=== PATIENT | female | born 1955 | race Caucasian/White ===

== ENCOUNTER 2021-03-09 07:18 | Outpatient (CLI) | payer MEDICAID ==
[2021-03-09 16:22] LABS: BASOPHILS # (AUTO) 0.1 10^3/uL (0.0-0.1); BASOPHILS % (AUTO) 1.1 %; EOSINOPHILS # (AUTO) 0.4 10^3/uL (0.0-0.7); HCT - HEMATOCRIT 41.6 % (37.0-47.0); HGB - HEMOGLOBIN 12.7 g/dL (12.0-16.0); LYMPHOCYTES # (AUTO) 2.4 10^3/uL (1.5-3.5); LYMPHOCYTES % (AUTO) 32.7 %; MEAN CORPUSCULAR HEMOGLOBIN 28.2 pg (27.0-31.0); MEAN CORPUSCULAR HGB CONC 30.5 g/dL (32.0-36.0); MEAN CORPUSCULAR VOLUME 92.4 fL (81.0-99.0); MEAN PLATELET VOLUME 9.5 fL (7.9-10.8); MONOCYTES # (AUTO) 0.5 10^3/uL (0.0-1.0); MONOCYTES % (AUTO) 6.9 %; PLT - PLATELET COUNT 432 10^3/uL (130-450); RED CELL DISTRIBUTION WIDTH 15.2 % (12.0-15.0); WHITE BLOOD COUNT 7.4 x10^3/uL (4.8-10.8)
[2021-03-09 16:32] LABS: CREATININE,URINE 74.4 mg/dL; MICROALBUM/CREATININE RATIO,UR 5.4 ug/mg (<30.0); MICROALBUMIN,URINE 0.4 mg/dL (0-300.0)
[2021-03-09 16:37] LABS: ALBUMIN 4.1 g/dL (3.2-5.5); ALBUMIN/GLOBULIN RATIO 1.2 (1.0-2.2); ALKALINE PHOSPHATASE 94 IU/L (42-121); ALT ALANINE AMINOTRANSFERASE 21 IU/L (10-60); AST ASPARTATE AMINOTRANSFERASE 19 IU/L (10-42); BILIRUBIN,TOTAL 0.5 mg/dL (0.2-1.0); BUN - BLOOD UREA NITROGEN 19 mg/dL (6-20); CALCIUM 9.3 mg/dL (8.5-10.3); CARBON DIOXIDE - CO2 28 mmol/L (21-32); CHLORIDE 101 mmol/L (101-111); CHOL/HDL RATIO 3.8 (<4.4); CHOLESTEROL 260 mg/dL; CREATININE 0.9 mg/dL (0.4-1.0); GFR - MDRD 63 (>89); GLUCOSE 115 mg/dL (70-100); HDL CHOLESTEROL 69 mg/dL; LDL CHOLESTEROL,CALCULATED 149 mg/dL; LDL/HDL RATIO 2.2 (<4.4); POTASSIUM 4.4 mmol/L (3.5-5.0); SODIUM 137 mmol/L (135-145); TOTAL PROTEIN 7.6 g/dL (6.7-8.2); TRIGLYCERIDES 211 mg/dL; VLDL CHOLESTEROL 42 mg/dL
[2021-03-09 16:50] LABS: THYROID STIMULATING HORMONE 9.17 uIU/mL (0.34-5.60)
[2021-03-09 17:26] LABS: FREE T4 (FREE THYROXINE) 0.67 ng/dL (0.58-1.64)
[2021-03-09 19:51] LABS: ESTIMATED AVERAGE GLUCOSE 140 mg/dL (70-100); HEMOGLOBIN A1c% 6.5 % (4.27-6.07)
== END 2021-03-09 07:19 | disposition home or self-care (01) ==
LOC: LAB.S 07:18
PROVIDERS: ATTEND Physician Assistant
DX: I10 Essential (primary) hypertension (principal); F33.9 Major depressive disorder, recurrent, unspecified; K21.9 Gastro-esophageal reflux disease without esophagitis; K57.90 Diverticulosis of intestine, part unspecified, without perforation or abscess without bleeding; E03.9 Hypothyroidism, unspecified; E11.9 Type 2 diabetes mellitus without complications
CPT/HCPCS: 36415; 80053; 80061; 82043; 82570; 83036; 83721; 84439; 84443; 85025

== ENCOUNTER 2021-04-24 12:55 | Outpatient (CLI) | payer MEDICAID | END 2021-04-24 12:56 | disposition home or self-care (01) | LOC: LAB.S 12:55 | PROVIDERS: ATTEND Physician Assistant | DX: E03.9 Hypothyroidism, unspecified (principal) | CPT/HCPCS: 36415; 84443 ==

== ENCOUNTER 2021-07-03 10:17 | Outpatient (CLI) | payer MEDICAID ==
[2021-07-03 16:23] LABS: THYROID STIMULATING HORMONE < 0.08 uIU/mL (0.34-5.60)
[2021-07-03 16:55] LABS: FREE T4 (FREE THYROXINE) 1.01 ng/dL (0.58-1.64)
== END 2021-07-03 10:18 | disposition home or self-care (01) ==
LOC: LAB.S 10:17
PROVIDERS: ATTEND Internal Medicine
DX: E03.9 Hypothyroidism, unspecified (principal)
CPT/HCPCS: 36415; 84439; 84443

== ENCOUNTER 2021-08-12 09:38 | Outpatient (CLI) | payer MEDICAID ==
[2021-08-12 15:27] LABS: THYROID STIMULATING HORMONE 0.12 uIU/mL (0.34-5.60)
[2021-08-12 16:11] LABS: FREE T4 (FREE THYROXINE) 0.79 ng/dL (0.58-1.64)
[2021-08-12 20:23] LABS: ESTIMATED AVERAGE GLUCOSE 140 mg/dL (70-100); HEMOGLOBIN A1c% 6.5 % (4.27-6.07)
== END 2021-08-12 09:39 | disposition home or self-care (01) ==
LOC: LAB.S 09:38
PROVIDERS: ATTEND Internal Medicine
DX: E03.9 Hypothyroidism, unspecified (principal)
CPT/HCPCS: 36415; 81599; 83036; 84436; 84439; 84443

== ENCOUNTER 2021-09-14 10:00 | Outpatient (CLI) | payer MEDICAID ==
--- NOTE | 2021-09-28 09:53 | Mammography Report ---
BILATERAL DIGITAL SCREENING MAMMOGRAM 3D/2D: 09/14/2021 CLINICAL: Routine screening. Comparison is made to exams dated: 01/06/2012 mammogram, 02/12/2009 mammogram, 09/19/2007 mammogram, an d 09/11/2007 mammogram - [facility]. The tissue of both breasts is predominantly fa tty. No significant masses, calcifications, or other findings are seen in either breast. There has been no significant interval change. IMPRESSION: NEGATIVE There is no mammographic evidence of malignancy. A 1 year screening mammogram is recommended. This exam was interpreted at Station ID: [id number]. NOTE: For mammograms, a report in lay terms will be sent to the patient. Approximately 15% of breast malignancies will not be visualized mammographically. In the management of a palpable breast mass, a negative mammogram must not discourage biopsy of a clinically suspicious lesion. Electronically Signed By: Jeovanny Palomino acr/penrad:09/25/2021 11:44:31 ACR BI-RADS Category 1: Negative 3341F PARENCHYMAL PATTERN: (F) - The breast(s) demonstrate(s) diffuse fatty replacement. BI-RADS CATEGORY: (1) - 1 RECOMMENDATION: (ANNUAL) - Recommend routine annual screening mammography. [id number] 1 year screening LATERALITY: (B)
== END 2021-09-14 10:01 | disposition home or self-care (01) ==
LOC: DI.S 10:00
DX: Z12.31 Encounter for screening mammogram for malignant neoplasm of breast (principal)

== ENCOUNTER 2021-11-13 10:12 | Outpatient (CLI) | payer MEDICAID ==
[2021-11-13 17:18] LABS: THYROID STIMULATING HORMONE 1.22 uIU/mL (0.34-5.60)
[2021-11-13 18:50] LABS: ESTIMATED AVERAGE GLUCOSE 134 mg/dL (70-100); HEMOGLOBIN A1c% 6.3 % (4.27-6.07)
== END 2021-11-13 10:13 | disposition home or self-care (01) ==
LOC: LAB.S 10:12
PROVIDERS: ATTEND Internal Medicine
DX: E03.9 Hypothyroidism, unspecified (principal); E11.9 Type 2 diabetes mellitus without complications
CPT/HCPCS: 36415; 83036; 84443

== ENCOUNTER 2021-11-20 12:56 | Outpatient (CLI) | payer MEDICAID ==
--- NOTE | 2021-11-20 17:11 | Ultrasound Report ---
PROCEDURE: Head or Neck Soft Tissue INDICATIONS: ENLARGED THYROID TECHNIQUE: Real time scanning was performed of the neck region of interest, with image documentation . COMPARISON: None. FINDINGS: Right: Thyroid lobe measures 3.1 x 1.0 x 1.0 cm, and is continues in echotexture. Left: Thyroid lobe measures 3.2 x 0.9 x 1.0 cm, and is homogenous in echotexture. Isthmus: Atrophic, therefore, not well seen. Largest cervical lymph nodes are present bilaterally. There is a 2.2 x 4.4 x 1.1 cm right cervical ly mph node. A 2.0 x 0.5 x 1.1 cm left cervical lymph node is identified. IMPRESSION: 1. Atrophic thyroid gland with heterogeneous echotexture. Please correlate with thyroid function test s. 2. Mild cervical lymphadenopathy. The findings nonspecific. Recommend clinical and imaging follow-up. Reviewed by: Maxime Hubbard MD on 11/20/2021 5:10 PM PDT Approved by: Maxime Hubbard MD on 11/20/2021 5:10 PM PDT Station ID: [id number]
== END 2021-11-20 12:57 | disposition home or self-care (01) ==
LOC: DI 12:56
PROVIDERS: ATTEND Internal Medicine
DX: E03.4 Atrophy of thyroid (acquired) (principal); R59.0 Localized enlarged lymph nodes

== ENCOUNTER 2021-11-27 08:00 | Outpatient (CLI) | payer MEDICAID ==
--- NOTE | 2021-11-27 10:09 | XRAY Report ---
PROCEDURE: Lumbar Spine 2 View INDICATIONS: LOW BACK PAIN TECHNIQUE: 2 views of the lumbar spine were acquired. COMPARISON: None. FINDINGS: Bones: 5 [id number] vertebrae are present. There is grade 1 anterolisthesis of L4 on L5. Bilat eral facet arthrosis at L4-5 and L5-S1 levels are seen. Degenerative endplate changes also seen at L3 -4 and L4-5 levels.. No vertebral body compression fractures. No suspicious bony lesions. Soft tissues: Overlying bowel gas pattern is normal. No suspicious soft tissue calcifications. IMPRESSION: Grade 1 anterolisthesis of L4 on L5. No acute compression fracture. Mild degenerative di sc disease in lower lumbar spine as above. Reviewed by: Puma Melvin MD on 11/27/2021 10:07 AM PDT Approved by: Puma Melvin MD on 11/27/2021 10:07 AM PDT Station ID: [id number]
== END 2021-11-27 23:59 | disposition home or self-care (01) ==
LOC: DI.S 08:00
PROVIDERS: ATTEND Physician Assistant Medical
DX: M43.16 Spondylolisthesis, lumbar region (principal); M47.816 Spondylosis without myelopathy or radiculopathy, lumbar region; M51.36 Other intervertebral disc degeneration, lumbar region

== ENCOUNTER 2022-01-22 06:27 | Day surgery (SDC) | payer MEDICAID ==
[2022-01-22] MEDS ORDERED: LACTATED RINGERS 1,000 ML IV ONE ×2 (06:45→08:24)
--- NOTE | 2022-01-22 07:15 | ANESTHESIA ---
Pre-Anesthesia VS, & Labs - Diagnosis history of polyps - Procedure colonoscopy Vital Signs: Temp Pulse Resp BP Pulse Ox 36.0 C L 114 H 16 165/91 H 98 01/22/22 06:45 01/22/22 06:45 01/22/22 06:45 01/22/22 06:45 01/22/22 06:45 Height: 5 ft 4 in Weight (kg): 81.7 kg Body Mass Index: 30.9 BMI Classification: Obese - NPO >8 hours - Is Patient ?: No - Lab Results Current Lab Results: Laboratory Tests 01/22/22 06:58: POC Whole Bld Glucose 105 H Home Medications and Allergies Home Medications: Ambulatory Orders Aspirin [[place] Aspirin EC] 1 tab PO DAILY 01/21/22 Levothyroxine [Synthroid] 1 tab PO DAILY 01/21/22 Losartan [Cozaar] 1 tab PO DAILY 01/21/22 Theanine [l-Theanine] 1 tab PO DAILY 01/21/22 buPROPion [Wellbutrin Sr] 2 tab PO BID 01/21/22 metFORMIN [Glucophage] 1 tab PO DAILY 01/21/22 Aspirin [[place] Aspirin EC] 1 tab PO DAILY 01/21/22 Levothyroxine [Synthroid] 1 tab PO DAILY 01/21/22 Losartan [Cozaar] 1 tab PO DAILY 01/21/22 Theanine [l-Theanine] 1 tab PO DAILY 01/21/22 buPROPion [Wellbutrin Sr] 2 tab PO BID 01/21/22 metFORMIN [Glucophage] 1 tab PO DAILY 01/21/22 Allergies/Adverse Reactions: Allergies Allergy/AdvReac Type Severity Reaction Status Date / Time gentamicin Allergy Itching Verified 01/21/22 13:06 "micins" Allergy Rash Uncoded 01/21/22 13:23 Anes History & Medical History - Anesthetic History Anesthesia Complications: reports: No previous complications - Medical History Cardiovascular: reports: Hypertension Pulmonary: reports: None Gastrointestinal: reports: Colon polyps Urinary: reports: None Musculoskeletal: reports: Osteoarthritis, Chronic back pain Endocrine/Autoimmune: reports: Type 2 diabetes, HyPOthyroidism Skin: reports: None Smoking Status: Never smoker History of Cancer?: No - Surgical History General: reports: Colonoscopy Gynecologic: reports: Dilation and currettage Orthopedic: reports: Other Exam General: Alert, Oriented x3 Dental: WNL Mouth Opening: Greater than 4 Fingerbreadths Neck Mobility: Normal Mallampati classification: II Respiratory: Lungs clear Cardiovascular: Regular rate, Normal S1, Normal S2 Plan Anesthesia Type: Total IV Consent for Procedure(s) Verified and Reviewed: Yes Code Status: Attempt Resuscitation ASA classification: 2-Mild systemic disease Is this case an emergency?: No
--- NOTE | 2022-01-22 07:39 | HISTORY & PHYSICAL EXAMINATION ---
Chief Complaint - Chief Complaint Chief Complaint: history of colon polyps History of Present Illness - History Obtained From Records Reviewed: yes History obtained from: pt Exam Limitations: none - History of Present Illness HPI Comment/Other: history of colon polyps and possible abnormal cecum by imaging. no problems. here for colon surveillance. she has had previous work up and consult for cecum. 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 and currettage Meds/Allgy - Home Medications Home Medications: Ambulatory Orders Medication Instructions Recorded Confirmed Aspirin [[place] Aspirin EC] 1 tab PO DAILY 01/21/22 01/21/22 Levothyroxine [Synthroid] 1 tab PO DAILY 01/21/22 01/21/22 Losartan [Cozaar] 1 tab PO DAILY 01/21/22 01/21/22 Theanine [l-Theanine] 1 tab PO DAILY 01/21/22 01/21/22 buPROPion [Wellbutrin Sr] 2 tab PO BID 01/21/22 01/21/22 metFORMIN [Glucophage] 1 tab PO DAILY 01/21/22 01/21/22 - Allergies Allergies/Adverse Reactions: Allergies Allergy/AdvReac Type Severity Reaction Status Date / Time gentamicin Allergy Itching Verified 01/21/22 13:06 "micins" Allergy Rash Uncoded 01/21/22 13:23 Review of Systems - Other Findings Other Findings: 10 pt ros as above otherwise unremarkable Exam - Vital Signs Reviewed Vital Signs: Yes Vital Signs: Vital Signs x48h Temp Pulse Resp BP Pulse Ox 01/22/22 06:45 36.0 C L 114 H 16 165/91 H 98 - Physical Exam General Appearance: positive: No acute distress, Alert Eyes Bilateral: positive: PERRL, EOMI, No scleral icterus ENT: positive: No signs of dehydration Neck: positive: No JVD, Trachea midline Respiratory: positive: No respiratory distress, Breath sounds nml Cardiovascular: positive: Regular rate & rhythm Abdomen: positive: Non-tender, No distention Neurologic/Psychiatric: positive: Oriented x3 Conclusion/Plan - Problem List (1) History of adenomatous polyp of colon Conclusion/Plan: plaqn colonoscopy. parq held and consent obtained
[2022-01-22] MEDS ORDERED: PROPOFOL 500 MG/50 ML 500 MG/50 ML VIAL ONE (08:05)
[2022-01-22 08:35] VITALS: BP 109/61
--- NOTE | 2022-01-22 11:12 | ANESTHESIA POST OP EVALUATION ---
Anesthesia Post Eval - Post Anesthesia Eval Vitals: Last Vital Signs Temp 36.4 C L 01/22/22 08:24 Pulse 79 01/22/22 08:31 Resp 13 01/22/22 08:31 BP 109/61 01/22/22 08:31 Pulse Ox 100 01/22/22 08:31 CV Function Including HR & BP: Stable Pain Control: Satisfactory Nausea & Vomiting: Negative Mental Status: Baseline Respiratory Status: Airway Patent Hydration Status: Satisfactory Anesthesia Complications: None
== END 2022-01-22 06:28 | disposition home or self-care (01) ==
LOC: SDS 06:27
PROVIDERS: ATTEND Surgery
PROC: 0DBH8ZX Excision of Cecum, Via Natural or Artificial Opening Endoscopic, Diagnostic (ICD-10-PCS; principal; 2022-01-22 07:30)
DX: Z12.11 Encounter for screening for malignant neoplasm of colon (principal); K57.30 Diverticulosis of large intestine without perforation or abscess without bleeding; K62.4 Stenosis of anus and rectum; K62.89 Other specified diseases of anus and rectum; E11.9 Type 2 diabetes mellitus without complications; F33.9 Major depressive disorder, recurrent, unspecified; E66.9 Obesity, unspecified; Z68.30 Body mass index [BMI] 30.0-30.9, adult; Z86.010 Personal history of colon polyps
CPT/HCPCS: 45380; J7120

== ENCOUNTER 2022-11-25 02:41 | Emergency (ER) | payer MEDICARE, MEDICAID ==
--- OUTSIDE RECORDS SUMMARY | 2022-11-25 02:51 | EXTERNAL MEDICAL SUMMARY RPT | Continuity of Care Document ---
:1955 Author Organization [facility] Address [address] [place] [address] Phone Care Team Providers Name Role Phone Unavailable Unavailable Unavailable Syed Turcios Md Unavailable Unavailable Allergies No information. Encounters No information. Functional Status No information. Immunizations No information. Medications date description facility 2022-11-23 00:00 levothyroxine [facility] 2022-11-23 00:00 levothyroxine [facility] 2022-11-23 00:00 levothyroxine [facility] 2022-11-23 00:00 gabapentin [facility] 2022-11-23 00:00 gabapentin [facility] 2022-11-23 00:00 gabapentin [facility] 2022-11-23 00:00 gabapentin [facility] 2022-11-23 00:00 levothyroxine [facility] Problems date description facility 2022-11-23 00:00 Chest pain [facility] 2022-11-23 00:00 Unspecified chest pain [facility] 2022-11-23 00:00 Chest pain, unspecified [facility] Procedures date description facility 2022-11-23 00:00 Visit Code Hold [facility] Results/Labs No information. Social History No information. Vital Signs date measurement value units 2022-11-23 00:00 BMI 30.80 kg/m2 2022-11-23 00:00 BP_diastolic 87 mmHg 2022-11-23 00:00 BP_systolic 129 mmHg 2022-11-23 00:00 heart_rate 98 /min 2022-11-23 00:00 height_metric 161.93 cm 2022-11-23 00:00 height_standard 63.75 in 2022-11-23 00:00 respiration_rate 16 /min 2022-11-23 00:00 temperature_metric 36.11 C 2022-11-23 00:00 temperature_standard 97 F 2022-11-23 00:00 weight_metric 80.47 kg 2022-11-23 00:00 weight_standard 177.4 lb
[2022-11-25 03:20] LABS: BASOPHILS # (AUTO) 0.1 10^3/uL (0.0-0.1); BASOPHILS % (AUTO) 0.8 %; EOSINOPHILS # (AUTO) 0.4 10^3/uL (0.0-0.7); EOSINOPHILS % (AUTO) 3.9 %; HCT - HEMATOCRIT 35.1 % (37.0-47.0); HGB - HEMOGLOBIN 10.8 g/dL (12.0-16.0); LYMPHOCYTES # (AUTO) 3.5 10^3/uL (1.5-3.5); LYMPHOCYTES % (AUTO) 36.6 %; MEAN CORPUSCULAR HEMOGLOBIN 27.1 pg (27.0-31.0); MEAN CORPUSCULAR HGB CONC 30.8 g/dL (32.0-36.0); MEAN PLATELET VOLUME 9.6 fL (7.9-10.8); MONOCYTES # (AUTO) 0.8 10^3/uL (0.0-1.0); MONOCYTES % (AUTO) 8.1 %; NEUTROPHILS # (AUTO) 4.8 10^3/uL (1.5-6.6); NEUTROPHILS % (AUTO) 50.4 %; PLT - PLATELET COUNT 413 10^3/uL (130-450); RED BLOOD COUNT 3.99 10^6/uL (4.20-5.40); RED CELL DISTRIBUTION WIDTH 13.8 % (12.0-15.0); WHITE BLOOD COUNT 9.5 x10^3/uL (4.8-10.8)
--- NOTE | 2022-11-25 03:22 | ED Physician Documentation ---
PD HPI CHEST PAIN - Stated complaint Stated Complaint: CHEST PX - Chief complaint Chief Complaint: Cardiac - History obtained from History obtained from: Patient - Additional information Additional information: Patient is a 67-year-old female presenting for evaluation of chest pain that she noticed around 115 this morning and woke her up from her sleep. She describes it as a pressure sensation in the left side of her chest that radiated to her shoulder blades. It lasted 10 minutes before it resolved. She states that 2 nights ago she had a similar episode of chest pain that lasted much longer and was more intense, lasting approximately 35 to 40 minutes.The following days she went to the walk-in clinic and had an ECG done. She was given a note from Dr. Turcios stating that she needed follow-up with her PCP and referral to cardiology. She was not directed to get lab testing or further evaluation that day. Patient has a history of hypertension and [id number] diabetes. 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 She denies associated fever, cough, shortness of breath, nausea or vomiting. She denies noticing episodes of chest pain with exertion. States she regularly works in her garden and has not had episodes of chest pain while in her garden. Review of Systems Constitutional: denies: Fever Cardiac: reports: Chest pain / pressure Respiratory: denies: Dyspnea, Cough GI: denies: Abdominal Pain Musculoskeletal: denies: Neck pain Neurologic: denies: Headache PD PAST MEDICAL HISTORY - Past Medical History Past Medical History: Yes Cardiovascular: Hypertension Endocrine/Autoimmune: Type 2 diabetes, HyPOthyroidism - Past Surgical History Past Surgical History: No - Present Medications Home Medications: Ambulatory Orders Medication Instructions Recorded Confirmed Aspirin [[place] Aspirin EC] 1 tab PO DAILY 01/21/22 11/25/22 Levothyroxine [Synthroid] 1 tab PO DAILY 01/21/22 11/25/22 Losartan [Cozaar] 1 tab PO DAILY 01/21/22 11/25/22 Theanine [l-Theanine] 2 tab PO BID 01/21/22 11/25/22 buPROPion [Wellbutrin Sr] 1 tab PO BID 01/21/22 11/25/22 metFORMIN [Glucophage] 1 tab PO DAILY 01/21/22 11/25/22 Cyclobenzaprine [Flexeril] 10 mg PO TID PRN 11/25/22 11/25/22 - Allergies Allergies/Adverse Reactions: Allergies Allergy/AdvReac Type Severity Reaction Status Date / Time gentamicin Allergy Itching Verified 11/25/22 02:55 "micins" Allergy Rash Uncoded 11/25/22 02:55 - Social History Does the pt smoke?: No Smoking Status: Never smoker Does the pt drink ETOH?: No Does the pt have substance abuse?: No - Immunizations Immunizations are current?: No - POLST Patient has POLST: No PD ED PE NORMAL - General General: Alert and oriented X 3, No acute distress, Well developed/nourished - HEENT HEENT: Atraumatic - Neck Neck: Supple, no meningeal sign - Cardiac Cardiac: RRR, No murmur - Respiratory Respiratory: No respiratory distress, Clear bilaterally - Abdomen Abdomen: Soft, Non tender, Non distended - Derm Derm: Warm and dry - Extremities Extremities: No edema, No calf tenderness / cord - Neuro Neuro: Normal speech Results - Vitals Vitals: Vital Signs - 24 hr 11/25/22 11/25/22 11/25/22 02:43 03:25 05:00 Temperature 36.8 C Heart Rate 85 76 77 Respiratory 20 13 20 Rate Blood Pressure 153/83 H 150/75 H 128/72 O2 Saturation 100 99 100 Oxygen O2 Source Room air - EKG (time done) 0247 EKG releavant findings:: EKG personally interpreted by author of this note. Relevant findings are: Rate 89, normal sinus rhythm, no STEMI, QTc 440 Rate: Rate (enter#) (89) Rhythm: NSR Intervals: No: Prolonged QT Ischemia: No: ST elevation c/w ischemia Compare to prior EKG: Old EKG unavailable - Labs Labs: Laboratory Tests 11/25/22 11/25/22 11/25/22 03:15 03:15 03:15 WBC 9.5 RBC 3.99 L Hgb 10.8 L Hct 35.1 L MCV 88.0 MCH 27.1 MCHC 30.8 L RDW 13.8 Plt Count 413 MPV 9.6 Neut # (Auto) 4.8 Lymph # (Auto) 3.5 [place] # (Auto) 0.8 Eos # (Auto) 0.4 Baso # (Auto) 0.1 Absolute Nucleated RBC 0.00 Nucleated RBC % 0.0 Sodium 140 Potassium 4.3 Chloride 105 Carbon Dioxide 26 Anion Gap 9.0 BUN 23 H Creatinine 1.3 H Estimated GFR (MDRD) 41 L Glucose 117 H Calcium 9.0 Total Bilirubin 0.2 AST 16 ALT 15 Alkaline Phosphatase 82 Troponin I High Sens 5.1 Total Protein 7.0 Albumin 3.9 Globulin 3.1 Albumin/Globulin Ratio 1.3 11/25/22 06:03 WBC RBC Hgb Hct MCV MCH MCHC RDW Plt Count MPV Neut # (Auto) Lymph # (Auto) [place] # (Auto) Eos # (Auto) Baso # (Auto) Absolute Nucleated RBC Nucleated RBC % Sodium Potassium Chloride Carbon Dioxide Anion Gap BUN Creatinine Estimated GFR (MDRD) Glucose Calcium Total Bilirubin AST ALT Alkaline Phosphatase Troponin I High Sens 5.3 Total Protein Albumin Globulin Albumin/Globulin Ratio PD Medical Decision Making - ED course Complexity details: reviewed results, re-evaluated patient, d/w patient ED course: 415 - Reading a book as is who is at the bedside. Reviewed initial labs discussed plan for second troponin at 6:00. Patient remains chest pain- free. Patient is a 67-year-old female presenting for evaluation of chest pain. The patient reports that the pain lasted 10 minutes and has resolved without any recurrence. Her EKG is reassuring with no signs of acute ischemia. Labs were obtained including CBC, chemistries and troponin without any significant findings. 3-hour troponin was also obtained and remains negative. Her chest x- ray which I reviewed is without signs of cardiomegaly, effusion or consolida tion.Patient has no known risk factors for PE and pain was short in duration and not migratory which seems to make a dissection very unlikely.Patient reported having a similar episode of chest pain 2 nights ago but that episode had lasted longer.Her PCP has placed a referral to the cardiology group at the [facility] and patient is awaiting a phone call back.Her heart score is a 4 but that is solely based on her age and risk factors. Departure - Departure Disposition: 01 Home, Self Care Clinical Impression: Chest pain Condition: Stable Instructions: ED Chest Pain Atypical Unkn Cause Comments: You were evaluated today for chest pain. At this time your labs are reassuring including markers that check your heart. 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 You likely need more testing to check your heart such as a stress test or add an ultrasound of your heart called an echocardiogram. I would recommend you call your primary care today to see if they are able to order the stress test for you or able to get you in for a close follow-up appointment. Please continue with your medications as prescribed. If you develop any new or worsening symptoms You should return to the emergency department for another evaluation.
[2022-11-25 03:37] LABS: ALBUMIN 3.9 g/dL (3.2-5.5); ALBUMIN/GLOBULIN RATIO 1.3 (1.0-2.2); BILIRUBIN,TOTAL 0.2 mg/dL (0.2-1.0); CREATININE 1.3 mg/dL (0.4-1.0); POTASSIUM 4.3 mmol/L (3.5-5.0)
[2022-11-25] MEDS ORDERED: SODIUM CHLORIDE 0.9% 500 ML IV STA (03:40)
[2022-11-25 06:38] VITALS: BP 128/72
--- NOTE | 2022-11-25 08:56 | XRAY Report ---
PROCEDURE: Chest 1 View X-Ray INDICATIONS: CP TECHNIQUE: One view of the chest was acquired. COMPARISON: None. FINDINGS: Surgical changes and devices: None. Lungs and pleura: No pleural effusions or pneumothorax. Lungs are clear. Mediastinum: Mediastinal contours appear normal. Heart size is normal. Bones and chest wall: No suspicious bony lesions. Overlying soft tissues appear unremarkable. IMPRESSION: No acute pulmonary process. The above findings are concordant with preliminary report. Reviewed by: Kimberly Harris MD on 11/25/2022 8:55 AM PDT Approved by: Kimberly Harris MD on 11/25/2022 8:55 AM PDT Station ID: [id number]
== END 2022-11-25 06:50 | disposition home or self-care (01) ==
LOC: ED 02:41
DX: R07.89 Other chest pain (principal); I10 Essential (primary) hypertension; E11.9 Type 2 diabetes mellitus without complications; E03.9 Hypothyroidism, unspecified; Z79.899 Other long term (current) drug therapy; Z79.84 Long term (current) use of oral hypoglycemic drugs; Z79.82 Long term (current) use of aspirin
CPT/HCPCS: 36415; 80053; 84484; 85025; 93005; 99283; 99284

== ENCOUNTER 2023-01-04 07:45 | Outpatient (CLI) | payer MEDICARE, MEDICAID ==
--- NOTE | 2023-01-04 08:09 | CARDIAC PROCEDURE NOTE ---
Stress Test Report Service Date: 01/04/23 Service Time: 08:00 Ordering Provider: Beverly Smallwood MD Indication for Test: Assess episodes of chest pain at rest. Significant Medical History: Keon is referred for a treadmill stress echocardiogram today, in follow-up of pressure-like chest discomfort that awakened her from sleep a few weeks ago. The first episode resolved in about 10 minutes but a couple of nights later she had a second, more severe episode that may have lasted as long as 40 minutes and prompted an evaluation at the [facility] Emergency Department. EKG at that time was nonischemic and troponins were negative x2. Today she reports that she has had no additional episodes of chest discomfort at all. She remains moderately active, doing some walking in her neighborhood and working in her garden without chest pain, shortness of breath or a sense of decreasing stamina. Cardiac Risk Factors: Keon reports a history of treated hypertension and type 2 diabetes for approximately 3 years; she has been told that she has elevated cholesterol but has not yet been treated for this. Her father had a stroke and many family members have hypertension and diabetes but she is not aware of any family members having coronary heart disease. She has never been a tobacco smoker. Type of Stress Test: ETT with Echocardiography Procedure: -Exercise Treadmill Test- After signing informed consent, the patient underwent rest echo imaging and then performed treadmill exercise using a Eric protocol. The patient exercised for 5 minutes 56 seconds and achieved a peak heart rate of 167 (107 percent predicted maximum heart rate for age), and an estimated workload of 7.1 METS. The test was terminated due to fatigue/shortness of breath and sciatic leg pain. Resting heart rate: 105 Peak heart rate: 167 Elevated at rest but with normal response to exercise. Resting BP: 119/72 Peak BP: 200/56 Normal BP response to exercise. Rhythm during exercise: Probably sinus rhythm throughout, though marked artifact may have reduced the ability to discern ectopic beats. Symptoms: No chest pain or discomfort described. EKG at rest showed normal sinus rhythm with borderline right axis deviation, otherwise normal. EKG at peak stress showed probable horizontal ST depression in lead V5 exceeding 1 mm (though difficult to be certain given marked artifact), likely meeting diagnostic EKG criteria for ischemia. In Recovery heart rate recovery was delayed as was blood pressure decrease; final recordings: HR 115, BP 178/56 at 5 minutes. Echo imaging performed at rest and with stress will be reported separately. I, Herminio Epps MD, was present throughout this treadmill stress study and supervised it in its entirety. Summary: 1) Exercise tolerance minimally reduced for age and sex as evidenced by LESLY of 5%. 2) Normal resting EKG. 3) Adequate level of exercise was achieved on this treadmill stress test. 4) Normal BP response to exercise. 5) ST depression likely meeting EKG criteria for ischemia was seen at peak stress, though quality of tracings was poor, with severe motion-associated artif act. 6) Echo image interpretation reveals normal left ventricular size, wall thickness and systolic function, with appropriate hyperdynamic augmentation of all segments with exercise, indicating no evidence of prior infarct or inducible ischemia. No significant valvular abnormality or elevation of estimated pulmonary artery systolic pressure seen on screening study. Conclusions and Recommendations: 1) Overall reassuring test results with no evidence of inducible ischemia by symptoms or echo imaging. EKG may have been abnormal (though limited by artifact), probably representing a false positive finding. 2) Elevated resting heart rate and delayed heart rate recovery post exercise likely a consequence of early cardiac autonomic dysfunction. 3) Patient's treatment for type 2 diabetes constitutes a class I indication for primary prevention statin therapy, which she will discuss with her providers. 4) She reports that she takes aspirin as a preventative for recurrence of colonic polyps; I am not familiar with this indication and have recommended that she discuss with her GI provider whether this is still necessary after a second colonoscopy did not show recurrent polyps a couple of years ago.
== END 2023-01-04 07:46 | disposition home or self-care (01) ==
LOC: DI 07:45
PROVIDERS: ATTEND Internal Medicine Cardiovascular Disease
DX: R07.89 Other chest pain (principal); R03.0 Elevated blood-pressure reading, without diagnosis of hypertension
CPT/HCPCS: 93350

== ENCOUNTER 2023-09-12 10:25 | Outpatient (CLI) | payer MEDICARE, MEDICAID ==
[2023-09-12 14:09] LABS: HCT - HEMATOCRIT 38.2 % (37.0-47.0); HGB - HEMOGLOBIN 11.7 g/dL (12.0-16.0); MEAN CORPUSCULAR HEMOGLOBIN 26.9 pg (27.0-31.0); MEAN CORPUSCULAR HGB CONC 30.6 g/dL (32.0-36.0); MEAN CORPUSCULAR VOLUME 87.8 fL (81.0-99.0); MEAN PLATELET VOLUME 9.9 fL (7.9-10.8); RED BLOOD COUNT 4.35 10^6/uL (4.20-5.40); RED CELL DISTRIBUTION WIDTH 15.5 % (12.0-15.0); WHITE BLOOD COUNT 7.8 x10^3/uL (4.8-10.8)
[2023-09-12 14:33] LABS: CHOLESTEROL 271 mg/dL; HDL CHOLESTEROL 90 mg/dL; LDL CHOLESTEROL,CALCULATED 156 mg/dL; LDL/HDL RATIO 1.7 (<4.4); TRIGLYCERIDES 125 mg/dL (48-352); VLDL CHOLESTEROL 25 mg/dL
[2023-09-12 14:42] LABS: THYROID STIMULATING HORMONE 0.31 uIU/mL (0.34-5.60)
[2023-09-12 14:47] LABS: FERRITIN 14.4 ng/mL (11.0-306.8)
[2023-09-13 22:07] LABS: DEAMIDATED GLIADIN IGA 5 units (0-19); DEAMIDATED GLIADIN IGG 4 units (0-19); ENDOMYSIAL IGA Negative (Negative); IMMUNOGLOBULIN A 293 mg/dL (87-352); T-TRANSGLUTAMINASE (TTG) IGA <2 U/mL (0-3); T-TRANSGLUTAMINASE (TTG) IGG 4 U/mL (0-5)
== END 2023-09-12 10:26 | disposition home or self-care (01) ==
LOC: LAB.S 10:25
PROVIDERS: ATTEND Family Medicine
DX: E78.00 Pure hypercholesterolemia, unspecified (principal); E03.9 Hypothyroidism, unspecified; D50.9 Iron deficiency anemia, unspecified
CPT/HCPCS: 36415; 80061; 82728; 82784; 83540; 83721; 84439; 84443; 84466; 85025; 85027; 86231; 86364

== ENCOUNTER 2023-09-23 08:00 | Outpatient (CLI) | payer MEDICARE, MEDICAID ==
[2023-09-23 16:37] LABS: FECAL OCCULT BLOOD (FIT) NEGATIVE (NEGATIVE)
== END 2023-09-23 23:59 | disposition home or self-care (01) ==
LOC: LAB.R 08:00
PROVIDERS: ATTEND Registered Nurse
DX: D50.9 Iron deficiency anemia, unspecified (principal)
CPT/HCPCS: 82274

== ENCOUNTER 2024-01-25 08:45 | Outpatient (CLI) | payer MEDICARE ==
--- NOTE | 2024-01-26 11:47 | Mammography Report ---
BILATERAL DIGITAL SCREENING MAMMOGRAM 3D/2D: 01/25/2024 CLINICAL: Routine screening. Comparison is made to exams dated: 09/14/2021 mammogram, 01/06/2012 mammogram, and 02/12/2009 mammogram - [facility]. There are scattered areas of fibroglandular density in both breasts (category b / 25%-50% glandular t issue). No significant masses, calcifications, or other findings are seen in either breast. There has been no significant interval change. IMPRESSION: NEGATIVE There is no mammographic evidence of malignancy. A 1 year screening mammogram is recommended. Based on the Tyrer Cuzick model (a risk assessment model) the patient's lifetime risk is 5.7% and her 10 year risk is 2.9%. According to the ACR, ACS, and NCCN guidelines, an annual breast MRI exam sarah g with mammogram is recommended if the patient's lifetime risk is 20% or greater. This exam was interpreted at Station ID: [id number]. NOTE: For mammograms, a report in lay terms will be sent to the patient. Approximately 15% of breast malignancies will not be visualized mammographically. In the management of a palpable breast mass, a negative mammogram must not discourage biopsy of a clinically suspicious lesion. Electronically Signed By: Pao torres/maribel:01/25/2024 09:57:20 letter sent: No_Letter ACR BI-RADS Category 1: Negative 3341F PARENCHYMAL PATTERN: (A) - The breast(s) demonstrate(s) scattered fibroglandular densities. BI-RADS CATEGORY: (1) - 1 RECOMMENDATION: (ANNUAL) - Recommend routine annual screening mammography. [id number] 1 year screening LATERALITY: (B)
== END 2024-01-25 08:46 | disposition home or self-care (01) ==
LOC: DI.S 08:45
PROVIDERS: ATTEND Family Medicine
DX: Z12.31 Encounter for screening mammogram for malignant neoplasm of breast (principal); R92.323 Mammographic fibroglandular density, bilateral breasts

== ENCOUNTER 2024-02-08 08:18 | Outpatient (CLI) | payer MEDICARE ==
[2024-02-08 15:09] LABS: HCT - HEMATOCRIT 38.1 % (37.0-47.0); HGB - HEMOGLOBIN 11.5 g/dL (12.0-16.0); MEAN CORPUSCULAR HEMOGLOBIN 27.3 pg (27.0-31.0); MEAN CORPUSCULAR HGB CONC 30.2 g/dL (32.0-36.0); MEAN CORPUSCULAR VOLUME 90.5 fL (81.0-99.0); RED BLOOD COUNT 4.21 10^6/uL (4.20-5.40); RED CELL DISTRIBUTION WIDTH 15.1 % (12.0-15.0); WHITE BLOOD COUNT 9.2 x10^3/uL (4.8-10.8)
[2024-02-08 15:45] LABS: FERRITIN 17.6 ng/mL (11.0-306.8)
== END 2024-02-08 08:19 | disposition home or self-care (01) ==
LOC: LAB.S 08:18
PROVIDERS: ATTEND Registered Nurse
DX: D50.9 Iron deficiency anemia, unspecified (principal)
CPT/HCPCS: 36415; 82728; 83540; 84466; 85027